=== PATIENT | male | born 1955 | race Hispanic/Latino ===

== ENCOUNTER 2023-11-07 08:31 | Emergency (ER) | payer MEDICARE, SELFPAY ==
[2023-11-07 08:57] VITALS: BP 165/73; PULSE 78; RESP 18; TEMP 37.1; O2SAT 99
--- NOTE | 2023-11-07 08:59 | ED.GENADULT ---
HPI - General Adult General Stated complaint: High B/P, Diabetic Problems Source: patient and family Mode of arrival: ambulatory Limitations: language barrier ([employer]ating [employer] services utilized) History of Present Illness HPI narrative: Patient presents requesting a medication refill. He has a history of BPH, hypertension and diabetes. He is currently visiting the area from [place]. He has 2 days left of his tamsulosin. He is requesting a refill on that. He has 1-2 episode per night nocturia. He denies other urinary symptoms. Related Data Allergies Allergy/AdvReac Type Severity Reaction Status Date / Time No Known Allergies Allergy Verified 11/07/23 08:58 Review of Systems Review of Systems: CONSTITUTIONAL: Denies fever, chills, or sweats. EYES: Denies visual changes, redness, or discharge. ENT: Denies rhinorrhea, congestion, sore throat, or otalgia. CARDIOVASCULAR: Denies chest pain, palpitations, or edema. RESPIRATORY: Denies cough or dyspnea. GASTROINTESTINAL: Denies abdominal pain, nausea, vomiting, or diarrhea. GENITOURINARY: Reports 1-2 episode per night nocturia. Denies dysuria or hematuria. SKIN: Denies rash or itching. MUSCULOSKELETAL: Denies back pain, joint pain, or myalgia. NEUROLOGIC: Denies headache, numbness, dizziness, or weakness. PSYCHIATRIC: Denies anxiety or depression. PMFSH Past Medical History Medical History BPH (benign prostatic hyperplasia) Diabetes Hypertension Surgical History Surgical History No pertinent past surgical history Family History Family History Mother Family history non-contributory Social History Social History Alcohol intake: never Substance use: never Living arrangements: with family Gender identity (if verbalized by the patient): Male Sexual Orientation (if Verbalized by the Patient): Straight or Heterosexual Spiritual care concerns: No Exam Narrative: GENERAL: Well-appearing, well-nourished, and in no acute distress. HEAD: Normocephalic, atraumatic. EYES: PERRLA and EOMI. ENT: Nares clear, no rhinorrhea or epistaxis. Mucous membranes moist. Oropharynx without tonsillar hypertrophy exudate or other lesions. Bilateral TMs pearly nieves nonbulging NECK: Supple. No adenopathy or masses. No carotid bruits or JVD CHEST: Clear to auscultation. No respiratory distress. No wheezes rales or rhonchi HEART: Regular rate and rhythm. No murmur heard. Normal peripheral pulses. ABDOMEN: Soft, nontender, nondistended, normal active bowel sounds. EXTREMITIES: Normal range of motion. No edema. SKIN: Warm, dry, no rash. NEURO: No focal deficits. Alert and oriented x3. PSYCH: Normal mood and affect. Course Course Emergency Course: This is a 68-year-old male who presented for medication refill of tamsulosin. Medication was sent to his preferred pharmacy. He should follow-up with his primary provider in go to the emergency department for inability to pass urine or other concerning symptoms. Patient and son in law are in agreement with plan of care. Level of Care: Express Care Visit Vital Signs Vital signs: Vital Signs Temperature 37.1 C 11/07/23 08:57 Pulse Rate 78 11/07/23 08:57 Respiratory Rate 18 11/07/23 08:57 Blood Pressure 165/73 H 11/07/23 08:57 Pulse Oximetry 99 11/07/23 08:57 Oxygen Delivery Room Air 11/07/23 08:57 Temperature 37.1 C 11/07/23 08:57 Pulse Rate 78 11/07/23 08:57 Respiratory Rate 18 11/07/23 08:57 Blood Pressure 165/73 H 11/07/23 08:57 Pulse Oximetry 99 11/07/23 08:57 Oxygen Delivery Room Air 11/07/23 08:57 Medical Decision Making Vital Signs Vital Signs: Vital Signs Temperature 37.1 C 11/07/23 08:57 Pulse Rate 78 11/07/
== END 2023-11-07 09:14 | disposition home or self-care (01) ==
PROVIDERS: Emergency Provider Nurse Practitioner
DX: Z76.0 Encounter for issue of repeat prescription (principal); E11.9 Type 2 diabetes mellitus without complications; I10 Essential (primary) hypertension; N40.0 Benign prostatic hyperplasia without lower urinary tract symptoms
CPT/HCPCS: 99203; G0463